=== PATIENT | female | born 1990 | race Caucasian/White ===

== ENCOUNTER → 2020-05-21 14:19 | Outpatient (BNVA) | payer OTHER, SELFPAY | PROVIDERS: Family Provider Nurse Practitioner Family; PCP Nurse Practitioner Family; Visit Provider Emergency Medicine | DX: Z11.59 Encounter for screening for other viral diseases (principal) | CPT/HCPCS: 87635 ==

== ENCOUNTER 2020-05-25 13:20 | Outpatient (CLI) | payer OTHER, SELFPAY ==
--- NOTE | 2020-05-25 13:26 | US_ITS ---
NOTE: Report was unsigned for reason: Ordering provider was edited. Original Signature date and time was: 05/25/20 @ 1558 WS: [id number] US transvaginal [id number] REASON FOR EXAM: Follicle study. Patient has received Follistim injection. Anatomically normal uterus measuring 6.46 x 4 5 x 4.00 cm. Endometrial thickness from 2 to 3 mm. No fluid within the uterus. Normal-appearing cervix. The right ovary measured 3.77 cm x 1.82 cm x 1.46 cm. There were 9 small follicular cysts ranging from 0.35 cm to 0.91 cm in maximum diameter. Normal blood flow to the ovary. The left ovary measured 2.48 cm x 1.74 cm x 3.00 cm. There were 12 small follicular cysts with maximum diameter of 0.35 cm to 0.85 cm. Normal blood flow to the left ovary. No fluid in the cul-de-sac. MTD US/US transvaginal [id number] IMPRESSION: Normal uterus as described above. Multiple right and left ovarian follicular cysts as above.
[2020-05-25 15:11] LABS: Estradiol. 75.2 pg/mL
== END 2020-05-25 13:21 | disposition home or self-care (01) ==
LOC: US 13:23
PROVIDERS: PCP Family Medicine; Visit Provider Specialist
DX: Q51.9 Congenital malformation of uterus and cervix, unspecified (principal)
CPT/HCPCS: 36415; 76830; 82670; 84144

== ENCOUNTER 2020-05-29 14:27 | Outpatient (CLI) | payer OTHER, SELFPAY ==
--- NOTE | 2020-05-29 14:33 | US_ITS ---
WS: [id number] Pelvic ultrasound, 05/29/2020 Clinical Data: UTERINE ABNORMALITIES Comparison: Pelvic ultrasound, 05/25/2020. Findings: The uterus measures 7.41 cm x 4.81 cm x 3.01 cm. The endometrium is 0.95 cm. No intrauterine or abnormal intrauterine mass is seen. The left ovary measures 2.4 to cm x 3.35 cm x 3.80 cm with 18 follicular cysts.. The largest cyst wa s 1.08 x 1.31 x 1.54 cm The right ovary measures 2.48 cm x 3.41 cm x 4.50 cm with 25 follicular cysts.. Largest cyst was 1.23 x 1.30 x 1.46 cm No fluid is seen in the cul-de-sac. US/US transvaginal [id number] Impression: 1. Multiple bilateral follicular cysts of the ovaries. 2. Negative uterus.
[2020-05-29 16:03] LABS: Progesterone 0.126 ng/mL
== END 2020-05-29 14:28 | disposition home or self-care (01) ==
LOC: US 14:28
PROVIDERS: PCP Family Medicine; Visit Provider Specialist
DX: Q51.9 Congenital malformation of uterus and cervix, unspecified (principal); N83.202 Unspecified ovarian cyst, left side; N83.201 Unspecified ovarian cyst, right side
CPT/HCPCS: 36415; 76830; 82670; 84144

== ENCOUNTER 2020-09-01 13:27 | Outpatient (CLI) | payer OTHER, SELFPAY ==
--- NOTE | 2020-09-01 13:37 | US_ITS ---
WS: [id number] ULTRASOUND PELVIS TECHNIQUE: Transvaginal. CLINICAL INFORMATION: UTERINE OVARIAN ABNORMALITIES LMP: : No. COMPARISON: None. FINDINGS: Uterus Orientation: Anteverted. Size: 7.1 x 2.4 x 4.0 cm Masses: None. Cervix: Normal. Endometrium: Normal. Endometrium thickness: 0.46 cm. Adnexa: Normal. Right ovary size: 3.2 x 2.1 x 2.6 cm. Left ovary size: 3.5 x 2.0 x 2.2 cm. Free fluid: Small amount of free fluid in the cul-de-sac. Other findings: None. US/US transvaginal [id number] IMPRESSION: 1. Normal uterus and endometrium. Endometrium measures 4.6 cm. 2. Small amount of fluid in the endometrium and cul-de-sac. 3. Normal physiologic follicles both ovaries.
[2020-09-01 15:33] LABS: C Reactive Protein 1.8 mg/L (0.0-4.9); Thyroid Stimulating Hormone 0.48 uIU/mL (0.27-4.20)
[2020-09-01 17:45] LABS: Estradiol. 125.4 pg/mL
== END 2020-09-01 13:28 | disposition home or self-care (01) ==
PROVIDERS: PCP Family Medicine; Visit Provider Specialist
DX: N92.1 Excessive and frequent menstruation with irregular cycle (principal); N94.9 Unspecified condition associated with female genital organs and menstrual cycle; R53.83 Other fatigue; E34.9 Endocrine disorder, unspecified
CPT/HCPCS: 36415; 76830; 82670; 84144; 84443; 86140

== ENCOUNTER 2020-09-10 15:03 | Outpatient (CLI) | payer OTHER, SELFPAY ==
--- NOTE | 2020-09-10 15:11 | US_ITS ---
WS: [id number] TRANSVAGINAL PELVIC ULTRASOUND HISTORY: UTERINE OVARIAN ABNORMALITIES COMPARISON: 09/01/2020 Uterus: 7.6 cm x 4.2 cm x 3.1 cm. Normal size anteverted uterus. No fibroid or mass. Normal cervix. Endometrium: 1.1 cm. Normal trilaminar endometrium. Right ovary: 3.0 cm x 2.7 cm x 2.0 cm. Small, subcentimeter follicles with normal vascularity. No mas s. Left ovary: 2.6 cm x 2.6 cm x 1.7 cm. Small, subcentimeter follicles with normal vascularity. No mass . Physiologic free fluid in the cul-de-sac. US/US transvaginal [id number] IMPRESSION: 1. Normal transvaginal pelvic ultrasound. 2. Normal endometrium. Trilaminar endometrium measures 1.1 cm.
[2020-09-10 16:35] LABS: Estradiol. 258.2 pg/mL
== END 2020-09-10 15:04 | disposition home or self-care (01) ==
PROVIDERS: PCP Family Medicine; Visit Provider Specialist
DX: N94.9 Unspecified condition associated with female genital organs and menstrual cycle (principal); R53.83 Other fatigue; E34.9 Endocrine disorder, unspecified
CPT/HCPCS: 36415; 76830; 82670; 84144

== ENCOUNTER → 2020-09-29 09:35 | Outpatient (BNVA) | payer OTHER, SELFPAY | PROVIDERS: PCP Family Medicine; Visit Provider Nurse Practitioner Family | DX: E34.9 Endocrine disorder, unspecified (principal); N92.6 Irregular menstruation, unspecified; R53.83 Other fatigue | CPT/HCPCS: 84144; 84702 ==

== ENCOUNTER → 2020-10-01 00:01 | Outpatient (BNVA) | payer OTHER, SELFPAY | PROVIDERS: PCP Family Medicine; Visit Provider Specialist | DX: E34.9 Endocrine disorder, unspecified (principal); N92.6 Irregular menstruation, unspecified; R53.83 Other fatigue | CPT/HCPCS: 84144; 84702 ==

== ENCOUNTER → 2022-09-21 16:50 | Outpatient (BNVA) | payer OTHER, SELFPAY | PROVIDERS: PCP Family Medicine; Visit Provider Specialist | DX: E34.9 Endocrine disorder, unspecified (principal); R53.83 Other fatigue | CPT/HCPCS: 82670; 84144; 84443; 86140 ==

== ENCOUNTER → 2024-09-27 14:02 | Outpatient (BNVA) | payer OTHER, SELFPAY | PROVIDERS: PCP Family Medicine; Visit Provider Family Medicine | DX: Z12.4 Encounter for screening for malignant neoplasm of cervix (principal); Z00.00 Encounter for general adult medical examination without abnormal findings | CPT/HCPCS: 80053; 84443; 85025; 87624 ==